=== PATIENT | female | born 2000 | race Caucasian/White ===

== ENCOUNTER 2018-07-01 17:51 | Emergency (ER) | payer OTHER ==
[2018-07-01 18:52] VITALS: BP 122/70
[2018-07-01] MEDS ORDERED: IBUPROFEN 800 MG TABLET PO ONE (20:02)
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
== END 2018-07-01 20:20 | disposition home or self-care (01) ==
LOC: ER 17:51
DX: M54.5 Low back pain (principal); V87.7XXA Person injured in collision between other specified motor vehicles (traffic), initial encounter
CPT/HCPCS: 99283

== ENCOUNTER 2019-09-09 17:51 | Emergency (ER) | payer OTHER ==
--- NOTE | 2019-09-09 19:28 | ER Document Report ---
ED Medical Screen (RME) - General Chief Complaint: Abdominal Cramping Stated Complaint: ABDOMINAL CRAMPING -7 WKS Time Seen by Provider: 09/09/19 19:24 Primary Care Provider: FLORIAN OSULLIVAN [Primary Care Provider] - Follow up as needed TRAVEL OUTSIDE OF THE [place] IN LAST 30 DAYS: No - HPI Notes: 09/09/19 19:26 18-year-old female , 7 weeks presents emergency room for abdominal cramping that is been occurring for the last 3 days. Denies any vaginal bleeding. Unsure of her last menstrual cycle. Patient states she has had nausea them, did vomit 5 days ago, denies any fevers or chills. Did call her [facility]IST[facility] nurse and they advised her to come to the emergency room for further evaluation. Patient states that she did have a miscarriage previously. Patient states she has not had any vaginal bleeding. Due to having a history of having a miscarriage, she wanted to get checked out today. Denies any new medications foods or travel. Patient is taking a vitamin I have greeted and performed a rapid initial assessment of this patient. A comprehensive ED assessment and evaluation of the patient, analysis of test results and completion of the medical decision making process will be conducted by additional ED providers. PHYSICAL EXAMINATION: GENERAL: Well-appearing, well-nourished and in no acute distress. CV: s1, s2 regular LUNGS: No respiratory distress Musculoskeletal: Normal range of motion NEUROLOGICAL: Normal speech, normal gait. SKIN: Warm, Dry, normal turgor, no rashes or lesions noted. 09/09/19 19:28 - Related Data Allergies/Adverse Reactions: No Known Allergies Allergy (Verified 03/21/14 06:45) Past Medical History - Past Medical History Cardiac Medical History: Denies: Hx Heart Attack, Hx Hypertension Pulmonary Medical History: Denies: Hx Asthma Neurological Medical History: Denies: Hx Cerebrovascular Accident, Hx Seizures Endocrine Medical History: Denies: Hx Diabetes Mellitus Type 1 Renal/ Medical History: Denies: Hx Peritoneal Dialysis GI Medical History: Denies: Hx Hepatitis, Hx Hiatal Hernia, Hx Ulcer Infectious Medical History: Denies: Hx Hepatitis Past Surgical History: Denies: Hx Hysterectomy, Hx Mastectomy, Hx Open Heart Surgery, Hx Pacemaker - Immunizations Immunizations up to date: Yes Hx Diphtheria, Pertussis, Tetanus Vaccination: Yes Physical Exam - Vital signs Vitals: Temp Pulse Resp BP Pulse Ox 98.7 F 89 18 124/66 99 09/09/19 18:12 09/09/19 18:12 09/09/19 18:12 09/09/19 18:12 09/09/19 18:12 Course - Vital Signs Vital signs: Temp Pulse Resp BP Pulse Ox 98.7 F 89 18 124/66 99 09/09/19 18:12 09/09/19 18:12 09/09/19 18:12 09/09/19 18:12 09/09/19 18:12 Doctor's Discharge - Discharge Referrals: LOCALMD,NO [Primary Care Provider] - Follow up as needed
[2019-09-09 19:37] LABS: ABSOLUTE EOSINOPHILS # (AUTO) 0.2 10^3/uL (0.0-0.6); ABSOLUTE LYMPHOCYTES (AUTO) 2.8 10^3/uL (0.5-4.7); ABSOLUTE MONOCYTES (AUTO) 0.8 10^3/uL (0.1-1.4); ABSOLUTE NEUT (AUTO) 7.7 10^3/uL (1.7-8.2); BASOPHILS % (AUTO) 0.2 % (0-2); EOSINOPHILS % (AUTO) 1.3 % (0-6); HEMATOCRIT 40.4 % (36.0-47.0); HEMOGLOBIN 13.5 g/dL (12.0-15.5); LYMPHOCYTES % (AUTO) 24.3 % (13-45); MEAN CORPUSCULAR HEMOGLOBIN 29.2 pg (27.0-33.4); MEAN CORPUSCULAR HGB CONC 33.6 g/dL (32.0-36.0); MEAN CORPUSCULAR VOLUME 87 fl (80-97); MONOCYTES % (AUTO) 6.8 % (3-13); PLATELET COUNT 319 10^3/uL (150-450); RED BLOOD COUNT 4.64 10^6/uL (3.72-5.28); RED CELL DISTRIBUTION WIDTH 13.9 % (11.5-14.0); SEGMENTED NEUTROPHILS % (AUTO) 67.4 % (42-78); TOTAL CELLS COUNTED % (AUTO) 100 %; WHITE BLOOD COUNT 11.5 10^3/uL (4.0-10.5)
[2019-09-09 19:46] LABS: APPEARANCE,URINE CLEAR; BILIRUBIN,URINE NEGATIVE (NEGATIVE); COLOR,URINE YELLOW; GLUCOSE, URINE NEGATIVE (NEGATIVE); KETONES,URINE NEGATIVE (NEGATIVE); LEUKOCYTE ESTERASE,URINE TRACE (NEGATIVE); NITRITE,URINE NEGATIVE (NEGATIVE); PROTEIN,URINE NEGATIVE (NEGATIVE); URINE SPECIFIC GRAVITY 1.024; UROBILINOGEN,URINE NEGATIVE mg/dL (<2.0)
[2019-09-09 19:53] LABS: ALBUMIN 4.1 g/dL (3.5-5.0); ALKALINE PHOSPHATASE 69 U/L (38-126); ANION GAP 8 (5-19); ASPARTATE AMINO TRANSFERASE 30 U/L (14-36); BILIRUBIN,TOTAL 0.2 mg/dL (0.2-1.3); BLOOD UREA NITROGEN 11 mg/dL (7-20); CALCIUM 9.5 mg/dL (8.4-10.2); CARBON DIOXIDE 24 mmol/L (22-30); CHLORIDE 102 mmol/L (98-107); GLUCOSE 86 mg/dL (75-110); POTASSIUM 3.7 mmol/L (3.6-5.0)
--- NOTE | 2019-09-09 21:40 | RADIOLOGY REPORT (SQ) ---
US TRANSVAGINAL CLINICAL STATEMENT: abd cramping, 7 weeks preg Findings: Uterus is anteverted and measures 8.8 x 5.6 x 6.0 cm. heart rate measures one 44 bpm. Right ovary measures 3.0 x 1.9 x 2.2 cm. Left ovary measures 2.4 x 2.0 x 3.4 cm. Vascular flow preserved within both ovaries on color and spectral Doppler imaging. Single viable IUP of estimated gestational age 7 weeks and 1 day. Cervix is closed and measures 2.6 cm. There is a small hypoechoic region adjacent to the gestational sac measuring 1.1 x 1.3 cm. IMPRESSION: Single viable IUP of seven weeks and one day with mild adjacent subchorionic hemorrhage.
--- NOTE | 2019-09-10 07:22 | ER Document Report ---
ED General - General Chief Complaint: Abdominal Cramping Stated Complaint: ABDOMINAL CRAMPING -7 WKS Time Seen by Provider: 09/09/19 19:24 Primary Care Provider: FLORIAN OSULLIVAN [NO LOCAL MD] - Follow up as needed TRAVEL OUTSIDE OF THE [place] IN LAST 30 DAYS: No - HPI Notes: Chief complaint: Lower abdominal cramping in early HPI: 18-year-old female 3 para 1 AB 1 at about 7 weeks by dates with no care comes in with 2 to 3-day history of mild intermittent suprapubic cramping. No vaginal discharge or bleeding. Denies fever, chills, nausea or vomiting. Denies back pain. Denies dysuria. - Related Data Allergies/Adverse Reactions: No Known Allergies Allergy (Verified 03/21/14 06:45) Past Medical History - General Information source: Patient, [facility] Records - Social History Smoking Status: Never Smoker Chew tobacco use (# tins/day): No Frequency of alcohol use: None Drug Abuse: None Family History: Reviewed & Not Pertinent Patient has homicidal ideation: Yes - Past Medical History Cardiac Medical History: Denies: Hx Heart Attack, Hx Hypertension Pulmonary Medical History: Denies: Hx Asthma Neurological Medical History: Denies: Hx Cerebrovascular Accident, Hx Seizures Endocrine Medical History: Denies: Hx Diabetes Mellitus Type 1 Renal/ Medical History: Denies: Hx Peritoneal Dialysis GI Medical History: Denies: Hx Hepatitis, Hx Hiatal Hernia, Hx Ulcer Infectious Medical History: Denies: Hx Hepatitis Past Surgical History: Denies: Hx Hysterectomy, Hx Mastectomy, Hx Open Heart Surgery, Hx Pacemaker - Immunizations Immunizations up to date: Yes Hx Diphtheria, Pertussis, Tetanus Vaccination: Yes Hx Pneumococcal Vaccination: 03/16/00 Review of Systems - Review of Systems Notes: Constitutional: Negative for fever. HENT: Negative for sore throat. Eyes: Negative for visual changes. Cardiovascular: Negative for chest pain. Respiratory: Negative for shortness of breath. Gastrointestinal: As per HPI. Genitourinary: As per HPI. Musculoskeletal: Negative for back pain. Skin: Negative for rash. Neurological: Negative for headaches, weakness or numbness. 10 point ROS negative except as marked above and in HPI. Physical Exam - Vital signs Vitals: Temp Pulse Resp BP Pulse Ox 98.7 F 89 18 124/66 99 09/09/19 18:12 09/09/19 18:12 09/09/19 18:12 09/09/19 18:12 09/09/19 18:12 - Notes Notes: GENERAL: Female patient of approximately stated age appearing in no acute distress. SKIN: Good turgor no rashes. HEAD: Normocephalic atraumatic. EYES: PERRLA. EOMI. Conjunctivae and sclerae clear. EARS: CANALS AND TMS CLEAR. NOSE: CLEAR. MOUTH: Moist mucosa. Good dentition. No stridor or edema. No drooling. NECK: Supple. No masses or thyromegaly. No adenopathy. Carotids 2+ without bruits. No JVD. BACK: Symmetrical without tenderness. CHEST: Respirations unlabored. Breath sounds clear and symmetrical. HEART: Regular rhythm. No murmur gallop or rub. ABDOMEN: Soft nontender without masses, organomegaly or rebound. Bowel sounds normally active. No bruits. GENITALIA: Deferred. EXTREMITIES: No edema. No calf tenderness. Cap refill less than 1.5 seconds. Dorsalis pedis and posterior tibial pulses 3+ and symmetrical. NEUROLOGICAL: GCS 15. Alert and oriented x3. Normal gait. Fluent speech. Cranial nerves II through XII intact. Sensorimotor and cerebellar normal. Normal tone. PSYCHIATRIC: Appropriate affect. Course - Re-evaluation Re-evalutation: 09/10/19 07:21 Patient advised of findings on ultrasound. We gave her usual precautions for vaginal cramping/bleeding in early . Findings, clinical impression and plan of treatment have been discussed with patient/family. Understanding of current findings and recommendations has been acknowledged by them and there is agreement regarding disposition and follow-up. - Vital Signs Vital signs: Temp Pulse Resp BP Pulse Ox 98.0 F 90 16 111/61 100 09/10/19 05:34 09/10/19 05:34 09/10/19 05:34 09/10/19 05:34 09/10/19 05:34 - Laboratory Result Diagrams: 09/09/19 18:30 09/09/19 18:30 Laboratory results interpreted by me: 09/09/19 09/09/19 09/09/19 18:30 18:30 18:38 WBC 11.5 H Sodium 133.9 L Beta HCG, Quant 58318.00 H Ur Leukocyte Esterase TRACE H - Diagnostic Test Radiology reviewed: Reports reviewed - OB ultrasound per radiologist: IUP at 7 weeks 1 day with mild subchorionic hemorrhage Discharge - Discharge Clinical Impression: Pelvic pain affecting in first trimester, antepartum Condition: Stable Disposition: HOME, SELF-CARE Additional Instructions: Avoid intercourse and use of tampons until reevaluated by your OB provider. You may take Tylenol as needed for your discomfort. Return here as needed for new or worsening symptoms: Pain that is worsening or unimproved Uncontrolled vomiting High fever or shaking chills Vaginal bleeding Overall worsening Referrals: LOCALMD,NO [NO LOCAL MD] - Follow up as needed
[2019-09-10 07:34] VITALS: BP 121/71
== END 2019-09-10 07:32 | disposition home or self-care (01) ==
LOC: ER 17:51
DX: O26.91 Pregnancy related conditions, unspecified, first trimester (principal); R10.9 Unspecified abdominal pain; Z3A.01 Less than 8 weeks gestation of pregnancy; Z90.710 Acquired absence of both cervix and uterus
CPT/HCPCS: 36415; 76817; 80053; 81001; 83690; 84702; 85025; 99284